=== PATIENT | male | born 1970 | race Caucasian/White ===

== ENCOUNTER 2019-04-07 15:12 | Outpatient (CLI) | payer BC, OTHER, SELFPAY ==
--- NOTE | ~2019-04-07 | XR_ITS ---
EXAMINATION: XR shoulder RT min 2V EXAM DATE: 04/07/2019 15:42 INDICATION: No known recent injury provided at this time. Pain of the right shoulder. Lump superior aspect. TECHNIQUE: The following right shoulder projections obtained: frontal projection with internal rotati on, frontal projection with external rotation, Grashey, and scapular Y view (4+ views). There is no prior study for comparison. FINDINGS: No evidence of right shoulder rotator cuff calcific tendinosis. There is moderate acromioc lavicular joint primary osteoarthritis. This does distort the skin surface superficial to this, may correlate to palpable abnormality. There are no acute fractures or dislocations identified. There is no subcutaneous gas. The soft tissue is unremarkable. There are no radiopaque foreign bodies. IMPRESSION: Moderate right acromioclavicular joint osteoarthritis. Reviewed, dictated and finalized at location B. OLL ASSISTANT
== END 2019-04-07 15:13 | disposition home or self-care (01) ==
PROVIDERS: PCP Family Medicine; Visit Provider Physician Assistant
DX: M25.511 Pain in right shoulder (principal); M19.011 Primary osteoarthritis, right shoulder
CPT/HCPCS: 73030

== ENCOUNTER 2020-03-22 14:49 | Outpatient (CLI) | payer BC, SELFPAY ==
--- NOTE | ~2020-03-22 | XR_ITS ---
EXAMINATION: XR foot RT min 3V DATE: 03/22/2020 17:51 INDICATION: Pain at the right fourth toe pad TECHNIQUE: Dorsoplantar, two oblique and lateral views of the right foot were obtained. COMPARISON: None. FINDINGS: Alignment is normal. No fracture. Minimal to mild polyarticular osteoarthritis in the mid and forefoo t. No cortical erosions or periosteal reaction. Soft tissues are unremarkable. No radiopaque foreign bodies. IMPRESSION: 1. Minimal to mild polyarticular osteoarthritis in the right mid and forefoot. No acute osseous abnor mality. Reviewed, dictated and finalized at location A. ONAL INSURANCE OFFICER IMPRESSION: 1. Minimal to mild polyarticular osteoarthritis in the right mid and forefoot. No acute osseous abnormality.
== END 2020-03-22 14:50 | disposition home or self-care (01) ==
PROVIDERS: PCP Family Medicine; Visit Provider Nurse Practitioner Family
DX: M19.071 Primary osteoarthritis, right ankle and foot (principal)
CPT/HCPCS: 73630

== ENCOUNTER 2020-06-15 05:12 | Emergency (ER) | payer BC, SELFPAY ==
[2020-06-15] VITALS (26 sets, daily range): BP systolic 108–143; BP diastolic 73–98; PULSE 72–125; RESP 10–23; TEMP 37.1; O2SAT 95–99
--- NOTE | ~2020-06-15 | XR_ITS ---
EXAMINATION: XR chest 2V DATE: 06/15/2020 06:00 INDICATION: Midsternal chest pain TECHNIQUE: PA and lateral views of the chest are obtained. COMPARISON: 12/23/2016 FINDINGS: The lungs are free of acute opacities. There is no pleural effusion or pneumothorax. The ca rdiomediastinal silhouette is normal. The visualized bones and soft tissues are unremarkable. IMPRESSION: 1. No acute cardiopulmonary abnormality. Reviewed, dictated and finalized at location A.
--- NOTE | 2020-06-15 05:27 | ECG_ITS ---
Measurements Intervals [employer] Rate: 102 P: 43 DE: 137 QRS: 18 QRSD: 68 T: 7 QT: 295 QTc: 385 Interpretive Statements SINUS TACHYCARDIA BORDERLINE T WAVE ABNORMALITY- INFERIOR LEADS BASELINE ARTIFACT- I, II, III ABNORMAL ECG Electronically Signed On 06-15-2020 13:46:50 CDT by Andreas Truong D.O.
[2020-06-15 05:41] LABS: Basophils Percent Auto 0.9 % (0.2-1.2); Eosinophils Percent Auto 1.8 % (0-4.4); Hematocrit 42.2 % (42.0-52.0); Hemoglobin 13.8 g/dL (14.0-18.0); Lymphocytes Absolute Auto 0.46 K/mm3 (0.9-3.2); Lymphocytes Percent Auto 20.4 % (18.3-44.2); Mean Corpuscular HGB Conc 32.7 g/dl (32-36); Mean Corpuscular Volume 85.6 fl (80-100); Mean Platelet Volume 9.2 fl (7.4-10.4); Monocytes Absolute Auto 0.5 K/mm3 (0.1-0.6); Monocytes Percent Auto 19.9 % (2.6-8.5); Neutrophils Absolute Auto 1.3 K/mm3 (1.3-6.7); Platelet Count Result 135 k/mm3 (150-375); Red Blood Count 4.93 M/mm3 (4.6-6.20); Red Cell Distribution Width 13.4 % (11.5-14.5); White Blood Count 2.3 K/mm3 (4.5-10.0)
[2020-06-15] MEDS: NITROGLYCERIN SL 0.4 MG TABLET SUBLINGUAL (05:41)
[2020-06-15 05:52] LABS: Prothrombin Time 13.3 Seconds (11.1-14.7)
[2020-06-15 05:53] LABS: Partial Thromboplastin Time 25.8 SECONDS (22.3-36.8)
--- NOTE | 2020-06-15 05:54 | ED.GENADULT ---
HPI - General Adult General Chief complaint: Chest Pain <Humberto Herrera MD - Last Filed: 06/15/20 06:59> Stated complaint: Chest pain <Humberto Herrera MD - Last Filed: 06/15/20 06:59> Time Seen by Provider: 06/15/20 05:33 <Humberto Herrera MD - Last Filed: 06/15/20 06:59> History of Present Illness HPI narrative: Patient is a 50-year-old gentleman who presents the emergency department with chief complaint of chest discomfort. Patient reports this evening he started having some pressure sensation in his chest patient reports he took 2 full-strength aspirin prior to arrival reports that he had no shortness of breath no diaphoresis. Patient reports that he has no prior history of cardiac disease and has had a stress test a few years ago. <Humberto Herrera MD - Last Filed: 06/15/20 06:59> Related Data Allergies/adverse reactions: Allergies Allergy/AdvReac Type Severity Reaction Status Date / Time No Known Allergies Allergy Uncoded 12/08/18 11:56 <Humberto Herrera MD - Last Filed: 06/15/20 06:59> Review of Systems Review of Systems: Narrative: A 10 system review of systems was completed on the patient and is negative except for what is stated in the HPI. Nursing and ancillary documentation was reviewed. <Humberto Herrera MD - Last Filed: 06/15/20 06:59> [facility] Past Medical History Medical History: Medical History Right anterior shoulder pain Right kidney stone Wellness examination <Humberto Herrera MD - Last Filed: 06/15/20 06:59> Family History Family History: Family History Mother Family history of diabetes mellitus in first degree relative Family history of coronary artery disease Family history of type 2 diabetes mellitus Father Patient's father is in good health <Humberto Herrera MD - Last Filed: 06/15/20 06:59> Social History Social History: Social History Smoking status: Never smoker Alcohol intake: never Gender identity (if verbalized by the patient): Male <Humberto Herrera MD - Last Filed: 06/15/20 06:59> Exam Narrative: Exam Narrative: GENERAL: Well-appearing, well-nourished, and in no acute distress. HEAD: Normocephalic, atraumatic. EYES: PERRLA and EOMI. ENT: Nares clear, no rhinorrhea or epistaxis. Mucous membranes moist. NECK: Supple. CHEST: Clear to auscultation. No respiratory distress. HEART: Regular rate and rhythm. No murmur heard. Normal peripheral pulses. ABDOMEN: Soft, nontender, nondistended, normal active bowel sounds. EXTREMITIES: Normal range of motion. No edema. SKIN: Warm, dry, no rash. NEURO: No focal deficits. Alert and oriented x3. PSYCH: Normal mood and affect. <Humberto Herrera MD - Last Filed: 06/15/20 06:59> Course Course Emergency Course: EKG showed no evidence of ST elevation or ST depression. Patient's initial troponin is negative The plan will be to perform a 3-hour troponin and if that is negative the patient will be able to follow-up as an outpatient. <Humberto Herrera MD - Last Filed: 06/15/20 06:59> 3 hour troponin negative. He still has some mild burning in his chest. I will try a GI cocktail to see if it gives him any relief. Significant improvement with GI cocktail Will plan to discharge <Maxi Lacey MD - Last Filed: 06/15/20 09:53> Vital Signs Vital signs: Vital Signs Pulse Rate 112 H 06/15/20 05:20 Respiratory Rate 17 06/15/20 05:20 Blood Pressure 142/97 H 06/15/20 05:20 Pulse Oximetry 99 06/15/20 05:20 Temperature 37.1 C 06/15/20 05:24 Pulse Rate 84 06/15/20 09:45 Respiratory Rate 14 06/15/20 09:45 Blood Pressure 118/82 06/15/20 09:01 Pulse Oximetry 98 06/15/20
[2020-06-15 05:55] LABS: Anion Gap 7 mmol/L (8-16); Blood Urea Nitrogen 15 mg/dL (9-20); Calcium 9.4 mg/dL (8.4-10.2); Carbon Dioxide 26 mmol/L (22-30); Chloride 107 mmol/L (98-107); Estimated CRCL calculation 101 ml/min; Estimated Glomerular Filt Rate > 60; Glucose 113 mg/dL (75-110); Sodium 140 mmol/L (137-145)
[2020-06-15 06:04] LABS: Troponin I < 0.012 ng/mL (0.000-0.034)
[2020-06-15 06:20] LABS: Alanine Aminotransferase 36 U/L (4-50); Albumin Level 4.3 g/dL (3.5-5.1); Alkaline Phosphatase 56 U/L (38-126); Aspartate Amino Transferase 42 U/L (17-59); Bilirubin,Total 0.2 mg/dL (0.2-1.3); Lipase 86 U/L (23-300)
[2020-06-15 09:14] LABS: Troponin I < 0.012 ng/mL (0.000-0.034)
== END 2020-06-15 09:50 | disposition home or self-care (01) ==
PROVIDERS: Emergency Medicine; Emergency Provider Emergency Medicine; PCP Family Medicine
DX: R07.89 Other chest pain (principal); Z87.442 Personal history of urinary calculi; R00.0 Tachycardia, unspecified; R94.31 Abnormal electrocardiogram [ECG] [EKG]
CPT/HCPCS: 36415; 71046; 80048; 80076; 83690; 84484; 85025; 85610; 85730; 93005; 99284; A9270

== ENCOUNTER 2023-01-26 21:21 | Emergency (ER) | payer BC, SELFPAY ==
--- NOTE | ~2023-01-26 | CT_ITS ---
Non-contrast CT scan of the Abdomen and Pelvis Clinical indication: Left flank pain Technique: 2.5 mm axial scans were obtained through the abdomen and pelvis without intravenous or or al contrast. Dose reduction technique was used on this scan by utilizing automated exposure control a nd iterative reconstruction technique. The dose-length product (DLP) was 396.36 mGy-cm. Findings: Images through the lung bases reveal 4 mm left basilar pulmonary nodule (axial image 13). There is a 4 mm proximal left ureteral stone (axial image 82), with mild left hydronephrosis. There a re additional small nonobstructing left renal calculi. No right renal or right ureteral stone. No rig ht hydronephrosis. The liver, spleen, pancreas, gallbladder, and adrenals appear normal. There is no aortic aneurysm. There is no evidence of bowel obstruction. Images through the pelvis were performed. There is no evidence of ascites or lymphadenopathy. Urinary bladder unremarkable. No pelvic mass seen. No ascites. Impression: 4 mm proximal left ureteral stone with mild hydronephrosis. Additional small nonobstructing renal calculi. 4 mm left basilar pulmonary nodule. According to Fleischner Society criteria, for a low-risk patient, no further follow-up required. For a high-risk patient, consider 12 month follow-up CT. Reviewed, dictated and finalized at location . CIATE STORE MANAGER Impression: 4 mm proximal left ureteral stone with mild hydronephrosis. Additional small nonobstructing renal calculi. 4 mm left basilar pulmonary nodule. According to Fleischner Society criteria, f or a low-risk patient, no further follow-up required. For a high-risk patient, consider 12 month follow-up CT.
[2023-01-26 21:23] VITALS: BP 139/93; PULSE 85; RESP 18; TEMP 36.8; O2SAT 100
[2023-01-26 21:38] VITALS: BP 121/83; PULSE 83; RESP 15; O2SAT 100
[2023-01-26 21:50] LABS: Basophils Percent Auto 0.5 % (0.2-1.2); Eosinophils Absolute Auto 0.1 K/mm3 (0-0.3); Eosinophils Percent Auto 1.8 % (0-4.4); Hemoglobin 14.2 g/dL (14.0-18.0); Immature Granulocyte Absolute 0.01 K/mm3 (0.00-0.031); Immature Granulocyte Percent A 0.3 % (0-0.5); Lymphocytes Percent Auto 28.7 % (18.3-44.2); Mean Corpuscular HGB Conc 32.3 g/dl (32-36); Mean Corpuscular Hemoglobin 28.5 pg (26-34); Mean Corpuscular Volume 88.4 fl (80-100); Mean Platelet Volume 9.2 fl (7.4-10.4); Monocytes Absolute Auto 0.4 K/mm3 (0.1-0.6); Monocytes Percent Auto 11.2 % (2.6-8.5); Neutrophils Absolute Auto 2.2 K/mm3 (1.3-6.7); Neutrophils Percent Auto 57.5 % (45.5-73.1); Platelet Count Result 160 k/mm3 (150-375); Red Blood Count 4.98 M/mm3 (4.6-6.20); White Blood Count 3.8 K/mm3 (4.5-10.0)
[2023-01-26 22:00] LABS: Alanine Aminotransferase 25 U/L (6-50); Albumin Level 4.6 g/dL (3.5-5.1); Alkaline Phosphatase 49 U/L (38-126); Anion Gap 13 mmol/L (8-16); Aspartate Amino Transferase 29 U/L (17-59); Bilirubin,Total 0.4 mg/dL (0.2-1.3); Blood Urea Nitrogen 14 mg/dL (9-20); Calcium 9.3 mg/dL (8.4-10.2); Carbon Dioxide 22 mmol/L (22-30); Chloride 107 mmol/L (98-107); Estimated CRCL calculation 92 ml/min; Estimated Glomerular Filt Rate > 60; Glucose 91 mg/dL (65-110); Potassium 3.6 mmol/L (3.4-5.0); Sodium 142 mmol/L (137-145)
[2023-01-26 22:08] LABS: Appearance Urine Cloudy (Clear); Bacteria Urine 1+ /hpf; Bilirubin Urine 1+ (Negative); Blood Urine 3+ (Negative); Calcium Oxalate Crystals Urine Present /hpf; Color Urine Dark Yellow (Yellow); Glucose Urine UA Negative (Negative); Ketones Urine Trace mg/dL (Negative); Leukocyte Esterase Ur Trace LEU/UL (Negative); Mucus Urine Present /lpf; Nitrate Urine Negative (Negative); Protein Urine 2+ mg/dL (Negative); RBC Urine >100 /hpf (0-2); Specific Grav Ur 1.028 (1.001-1.035); Squamous Epithelial Cell Urine None seen /hpf (Few); WBC Urine 0-5 /hpf; pH Urine 5.5 (5.0-9.0)
[2023-01-26 22:10] LABS: Add Urine Microscopic? YES
--- NOTE | 2023-01-26 22:22 | ED.MALEGU ---
HPI - Male Genitourinary General Chief complaint: Urogenital-Male Stated complaint: Kidney pain Time Seen by Provider: 01/26/23 21:31 History of Present Illness HPI Narrative: 52-year-old male with a history of kidney stones reports for evaluation for left-sided flank pain x1 hour. Patient states the pain radiates into his left abdomen and feels like his prior kidney stones. He denies dysuria, hematuria, urinary frequency or urgency. He does state that his urine looked darker today. Denies nausea or vomiting, fever. He does endorse some diarrhea. Related Data Allergies Allergy/AdvReac Type Severity Reaction Status Date / Time No Known Allergies Allergy Unknown Uncoded 01/26/23 21:22 Review of Systems Review of Systems: CONSTITUTIONAL: Denies fever, chills, or sweats. EYES: Denies visual changes, redness, or discharge. ENT: Denies rhinorrhea, congestion, sore throat, or otalgia. CARDIOVASCULAR: Denies chest pain, palpitations, or edema. RESPIRATORY: Denies cough or dyspnea. GASTROINTESTINAL: See HPI GENITOURINARY: see HPI SKIN: Denies rash or itching. MUSCULOSKELETAL: Denies back pain, joint pain, or myalgia. NEUROLOGIC: Denies headache, numbness, or weakness. PSYCHIATRIC: Denies anxiety or depression. [facility] Past Medical History Medical History IFG (impaired fasting glucose) Right anterior shoulder pain Right kidney stone Wellness examination Family History Family History Mother Family history of diabetes mellitus in first degree relative Family history of coronary artery disease Family history of type 2 diabetes mellitus Father Patient's father is in good health Social History Social History Smoking status: Never smoker Alcohol intake: never Substance use: never Living arrangements: with family Occupation/Education: occupation Gender identity (if verbalized by the patient): Male Sexual Orientation (if Verbalized by the Patient): Straight or Heterosexual Spiritual care concerns: No Exam Narrative: GENERAL: Well-appearing, well-nourished, and in no acute distress. patient resting comfortably in exam bed. He is pleasant and conversational. HEAD: Normocephalic, atraumatic. EYES: PERRLA and EOMI. ENT: Nares clear, no rhinorrhea or epistaxis. Mucous membranes moist. NECK: Supple. CHEST: Clear to auscultation. No respiratory distress. HEART: Regular rate and rhythm. No murmur heard. Normal peripheral pulses. ABDOMEN: Normoactive bowel sounds. Abdomen soft and nontender. Nondistended. Left CVA tenderness. No rebound, guarding or rigidity. EXTREMITIES: Normal range of motion. No edema. SKIN: Warm, dry, no rash. NEURO: No focal deficits. Alert and oriented x3 Course Vital Signs Vital signs: Vital Signs Temperature 98.3 F 01/26/23 21:23 Pulse Rate 85 01/26/23 21:23 Respiratory Rate 18 01/26/23 21:23 Blood Pressure 139/93 H 01/26/23 21:23 Pulse Oximetry 100 01/26/23 21:23 Oxygen Delivery Room Air 01/26/23 21:23 Temperature 98.3 F 01/26/23 21:23 Pulse Rate 83 01/26/23 21:38 Respiratory Rate 15 01/26/23 21:38 Blood Pressure 121/83 01/26/23 21:38 Pulse Oximetry 100 01/26/23 21:38 Oxygen Delivery Room Air 01/26/23 21:23 MDM - Male Genitourinary MDM Narrative Medical decision making narrative: 52-year-old male with history of kidney stones reports for evaluation for left-sided flank pain x1 hour. See HPI for further history. Vitals are stable and he is afebrile. He is well appearing on exam. Exam significant for left CVA tenderness. Lab significant for leukocytosis of 3.8 which is increased from his prior. chemistries are unremarkable. creatinine normal at 0.8. Urinalysis significant for hematuria, trace leuk esterase and 1+ bacteria. No wbc's.
[2023-01-26] MEDS: MORPHINE SULFATE (*CRX) 4 MG/ML INJ IV PUSH (22:36)
[2023-01-26] MEDS: SODIUM CHLORIDE 0.9% IV 1,000 ML 999 ML IV CONT (22:39)
[2023-01-26 22:43] LABS: Lipase 163 U/L (23-300)
[2023-01-26] MEDS: HYDROmorphone HCL INJ (*CRX) 1 MG/ML SYR 0.5 MG IV PUSH (23:33)
[2023-01-27] MEDS: HYDROmorphone HCL INJ (*CRX) 1 MG/ML SYR 0.5 MG IV PUSH (01:28)
[2023-01-27 01:30] VITALS: BP 120/82; PULSE 90; RESP 15; O2SAT 99
== END 2023-01-27 01:35 | disposition home or self-care (01) ==
PROVIDERS: Emergency Medicine; Emergency Provider Physician Assistant; PCP Family Medicine
DX: K52.9 Noninfective gastroenteritis and colitis, unspecified (principal); N13.2 Hydronephrosis with renal and ureteral calculous obstruction; Z87.442 Personal history of urinary calculi; R91.1 Solitary pulmonary nodule
CPT/HCPCS: 36415; 74176; 80053; 81001; 83690; 85025; 96361; 96374; 96375; 96376; 99284; J1170; J2270; J7030

== ENCOUNTER 2023-01-30 01:00 | Day surgery (SDC) | payer BC, SELFPAY ==
[2023-01-29 08:34] VITALS: BMI 21.6
--- NOTE | 2023-01-29 08:38 | PC.NURSE ---
Report to the Outpatient Waiting Room, entrance under the green pavilion located off [facility], at time 1230 on date 01/30/23. Planned Procedure Time: 1430. Time changes happen often and if your time is changed the preop area will call you the afternoon before. - You and your visitor will be asked to self-screen and do not enter if you have any COVID symptoms. - A mask is optional within the hospital at this time. Patients may have clear liquids (water, carbonated beverages, clear teas, apple juice) until 3 hours prior to surgery with a maximum of 20 ounces. - No food from midnight until time of surgery Take the following medications with a SIP of water the morning of surgery: PAIN PILL IF NEEDED DO NOT STOP ANY OF YOUR OTHER PRESCRIPTION MEDICATIONS PRIOR TO SURGERY ?EXCEPT THE FOLLOWING Medications to discontinue per physician: N/A Date to take last dose: N/A Please no make-up, nail turkish, hairspray, perfume, deodorant, or body powder the day of surgery. No jewelry (including any body piercings) or valuables the day of surgery, leave them at home. Please take a shower or bath the night before, or the morning of, surgery with an antibacterial soap. Wear comfortable, loose fitting clothing. - Jewelry must be removed prior to entering the operating room. Rings and piercings that are not removed may be cut off. - The hospital will not accept responsibility for valuables. - Please leave all valuables, including medications, at home the day of surgery. If you are going home after surgery, a licensed [facility] driver must drive you home. - NO public transportation without another adult if you receive anesthesia. - We recommend that an adult stay with you for 24 hours following discharge. - We also recommend that you do not drive, make important decision, drink alcoholic beverages, or take any drugs that were not prescribed by your health care provider for at least 24 hours after your discharge time. Follow any additional instructions given to you from your surgeon. If you or anyone in your household have experienced Covid symptoms in the past week, please notify your surgeon or the nurse liaison at the phone number below for possible testing. Telephone instructions given to PT - DEMETRIS WHEELER and asked if any additional questions and then verbalized understanding. Patient advised to call surgeon office or pre surgery nurse liaison [phone] if any additional questions.
--- NOTE | 2023-01-29 14:45 | P.PNAN_ITS ---
Anes - Initial Pre Proc Eval Procedure: Operation Date: 01/30/23 14:30 Proposed Procedures p Cystoscopy, Left Ureteroscopy with Stone Extraction, Possible Holmium Laser, Possible Left Stent Placement - Matty Christine MD Date/Time: 01/29/23 14:45 Surgeon: Matty Christine MD Pre Op Diagnosis: left ureteral stone Patient Data Age: 52 Gender: M Height: 1.8 m Weight: 70.3 kg Allergies Allergy/AdvReac Type Severity Reaction Status Date / Time No Known Allergies Allergy Unknown Uncoded 01/29/23 08:34 Home Medications Medication Instructions Recorded Confirmed Type hydrocodone 5 mg-acetaminophen 325 1 tablet PO Q8H PRN pain #10 tabs 01/27/23 01/29/23 Rx mg tablet ondansetron 4 mg disintegrating 4 mg PO Q8H #20 tabs 01/27/23 01/29/23 Rx tablet tamsulosin 0.4 mg capsule (Flomax) 0.4 mg PO HS #14 caps 01/27/23 01/29/23 Rx Patient hx anesthesia problems: none Family hx anesthesia problems: none Results Review: All pre-operative results and documents have been reviewed as part of the pre- operative evaluation. [facility] Past Medical History Medical History IFG (impaired fasting glucose) Right anterior shoulder pain Right kidney stone Wellness examination Family History Family History Mother Family history of diabetes mellitus in first degree relative Family history of coronary artery disease Family history of type 2 diabetes mellitus Father Patient's father is in good health Social History Social History Smoking status: Never smoker Alcohol intake: never Substance use: never Substance use type: does not use Living arrangements: with family Occupation/Education: occupation Gender identity (if verbalized by the patient): Male Sexual Orientation (if Verbalized by the Patient): Straight or Heterosexual Spiritual care concerns: No Anes - Eval Final PreProcedure Day of Procedure 01/29/23 14:45 Patient weight: normal Heart: regular rate and rhythm Lungs: clear to auscultation and normal air movement Airway: Mallampati scale class II Neurological: alert and oriented Last oral intake: >/= 8 hours ASA classification: II Emergent: no Anesthetic plan: proceed Anesthesia type and monitoring: general LMA and standard monitoring Results Review: All pre-operative results and documents have been reviewed as part of the pre-operative evaluation. Informed Consent: The patient's anesthetic plan and its attendant risks and benefits were discussed with the patient/family/POA. Questions were solicited and answers provided to the satisfaction of the patient/family/POA.
[2023-01-30] VITALS (13 sets, daily range): BP systolic 108–135; BP diastolic 70–86; PULSE 56–113; RESP 12–16; TEMP 35.6–36.9; O2SAT 99–100; BMI 23.7
--- NOTE | ~2023-01-30 | XR_ITS ---
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 TECHNIQUE: 3 fluoroscopic images of the abdomen were obtained during left lithotripsy with stone jackie ros performed by the surgeon. I was not present in the operating room. Fluoroscopy exposure time was 40.6 seconds. Air Kerma 9.48 mGy. DAP [id number] mGym2. COMPARISON: CT abdomen pelvis 01/26/2023 FINDINGS: Fluoroscopic images demonstrate wire access to the left collecting system followed by catheter placem ent. IMPRESSION: Fluoroscopic documentation of left lithotripsy with stone removal. Please refer to the operative note for complete procedural details . Reviewed, dictated and finalized at location K. ESS AND BAG INSPECTOR
--- NOTE | 2023-01-30 06:33 | WPDHPUPDATE1 ---
History and Physical Update Update Date/Time: 01/30/23 06:33 History and Physical has been reviewed, including an updated exam of the patient. There are NO changes in the patient's condition. Risks, benefits, and alternatives have been discussed and questions answered. Patient agrees to proceed with procedure.
[2023-01-30] MEDS: LACTATED RINGERS 1,000 ML 30 ML IV CONT ×3 (13:32→17:30)
[2023-01-30] MEDS: ceFAZolin 2 GM/D5W 50 ML 2 GM/50 ML BAG IVPB (14:12)
[2023-01-30] MEDS: LIDOCAINE HCL 2% GEL UROJET 10 ML PKG MUCOUS MEM (14:22)
[2023-01-30] MEDS: KETOROLAC 15 MG/ML VIAL (*BKC) IV PUSH ×2 (14:38→23:50)
--- NOTE | 2023-01-30 14:48 | W.PM.PROC2 ---
Procedure Note - Detailed Date of Procedure 01/30/23 Pre-op Diagnosis Left ureteral stone Post-op Diagnosis Same Procedure Performed Cystoscopy, left ureteroscopy with laser lithotripsy and left ureteral stone extraction Surgeon Matty Christine MD Anesthesia General Description of Procedure patient is brought to the operative suite where he has prepped draped in routine sterile fashion while in dorsal lithotomy position after the uneventful induction general LMA anesthetic. Cystoscopy was undertaken with a 21 F rigid cystoscope. He has no urethral stricture and minimal prostatic hyperplasia. The bladder was normal without intravesical foreign body or neoplasm. He has bilateral Hutch diverticula with, otherwise, normal orthotopic ureteral orifices. 0.035 in glidewire was advanced in the left renal pelvis. Left distal ureter was dilated with an 8 F 10 F dilator. Left ureteroscopy was 1st undertaken with a semi-rigid ureteral scope. I do not see any stone in the distal ureter. A 7.5 F flexible ureteral scope was then placed. He has a single 5 mm stone with a couple peripheral fragments in the proximal ureter. Using a 200 micron holmium laser I fractured the stone into the of couple really small pieces and irrigated out spontaneously. I was not able to remove the bulk of the stone, otherwise intact, with a 1.9 F disposable stone basket. I repeated ureteroscopy, including inspection of all calices and saw no fragments over 1-2 mm. Because of the ease of this manipulation I opted not to place a ureteral stent. Scope was removed and he was taken recovery room good condition Drains No Packing No Pathology None sent
[2023-01-30] MEDS: oxyCODONE HCL (*CRX) 5 MG TAB IR PO (15:49)
[2023-01-30] MEDS: fentaNYL CITRATE INJ (*CRX) 100 MCG/2 ML VIAL 25 MCG IV PUSH ×8 (15:49→18:00)
[2023-01-30] MEDS: KETOROLAC 30 MG/ML VIAL (*BKC) IV PUSH (16:25)
--- NOTE | 2023-01-30 17:00 | SUR.PHASEII ---
Addendum entered by Amna Navarro RN 01/30/23 17:06: DR. MORENO CALLED AT 1615. Original Note: DR. MORENO NOTIFIED RE: PATIENT HAVING SEVERE LEFT FLANK PAIN 10/10, WRITHING, VERY PALE. DR. MORENO INSTRUCTED TO GIVE 30 MG TORADOL AND CONTINUE GIVING FENTANYL. PATIENT WAS ABLE TO URINATE 150 ML RED URINE. NO CLOTS NOTED. DR. MORENO STATED PATIENT MAY BE ADMITTED FOR PAIN CONTROL IF HE DOESN'T IMPROVE.
--- NOTE | 2023-01-30 17:37 | SUR.PHASEII ---
DR. MORENO CALLED RE: PATIENT STILL HAVING INTERMITTENT SEVERE PAIN 8-11/19. PATIENT EXPRESSES ANXIETY ABOUT GOING HOME WITH THIS LEVEL OF PAIN. DR. MORENO INSTRUCTED TO ADMIT PATIENT TO FLOOR.
--- NOTE | 2023-01-30 18:02 | SUR.PHASEII ---
1433 MANAGER [employer]ET[employer]S CALLED TO REQUEST ADMISSION. PATIENT ORDERED DINNER.
[2023-01-30] MEDS: HYDROmorphone HCL INJ (*CRX) 1 MG/ML SYR 0.5 MG IV PUSH ×2 (20:05→22:52)
[2023-01-30] MEDS: LACTATED RINGERS 1,000 ML 125 ML IV CONT (20:13)
[2023-01-30] MEDS: ONDANSETRON INJ 4 MG/2 ML VIAL IV PUSH (21:52)
--- NOTE | 2023-01-30 22:28 | ADMGEN ---
This patient, Abdi Martinez, was admitted to [facility] Surg Room 330-01. Patient/family oriented to hospital policies and general routines including ID bracelet, bed and alarms, visiting hours, pain management, procedures, bathroom and other care routines, personal items, smoking policy, room service/diet, and visiting hours. Information on how to activate the Rapid Response Team has been discussed. Patient/Family are encouraged to report perceived risks to care and to ask questions if they do not understand what they are told or what they should do.
[2023-01-31 05:26] VITALS: BP 115/79; PULSE 74; RESP 18; TEMP 36.3; O2SAT 100
[2023-01-31] MEDS: HYDROcodone/acetaminophen (*CRX) 7.5-325 MG TABLET 1 TAB PO (05:48)
--- NOTE | 2023-01-31 07:22 | PM.IMHP ---
H&P: HPI History of Present Illness Date/Time: 01/31/23 07:22 Chief Complaint: Left flank pain Narrative: Patient with an obstructing 5 mm left mid ureteral calculus who underwent ureteroscopy with extraction yesterday. He opted not to place a stent postoperatively. Unfortunately, he had significant left flank pain prompting admission overnight. Very early this morning he passed a clot likely came from his left ureter and he has now felt quite well without pain. Review of Systems Cardiovascular: Cardiovascular: Denies chest pain, Denies lightheadedness, Denies palpitations and Denies dyspnea Respiratory: Respiratory: Denies dyspnea Gastrointestinal: Gastrointestinal: Denies diarrhea, Denies nausea and Denies vomiting Genitourinary: Genitourinary: Denies hematuria and Denies dysuria Endocrine: Endocrine: Denies palpitations [facility] Past Medical History Medical History IFG (impaired fasting glucose) Right anterior shoulder pain Right kidney stone Wellness examination Family History Family History Mother Family history of diabetes mellitus in first degree relative Family history of coronary artery disease Family history of type 2 diabetes mellitus Father Patient's father is in good health Social History Social History Smoking status: Never smoker Alcohol intake: never Substance use: never Substance use type: does not use Do You Feel Safe in your Home?: Yes Lack of Transportation: No Lack of Food: Never True Current Housing: I Have Housing Concerned About Future Housing: No Difficulty Paying Gas/Electric Bills: No Difficulty Paying for Meds: No Currently Unemployed: No Education: Associate Degree Difficulty w/ Childcare or Family Care: No Living arrangements: with family Occupation/Education: occupation Gender identity (if verbalized by the patient): Male Sexual Orientation (if Verbalized by the Patient): Straight or Heterosexual Spiritual care concerns: No Meds Home Medications and Allergies Home Medications Medication Instructions Recorded Confirmed Type hydrocodone 5 mg-acetaminophen 325 1 tablet PO Q8H PRN pain #10 tabs 01/27/23 01/29/23 Rx mg tablet ondansetron 4 mg disintegrating 4 mg PO Q8H #20 tabs 01/27/23 01/29/23 Rx tablet tamsulosin 0.4 mg capsule (Flomax) 0.4 mg PO HS #14 caps 01/27/23 01/29/23 Rx hydrocodone 5 mg-acetaminophen 325 1 - 2 tablet PO Q6H PRN pain #20 01/30/23 Rx mg tablet tabs ketorolac 10 mg tablet 10 mg PO Q6H 5 days #20 tabs 01/30/23 Rx sulfamethoxazole 800 1 tablet PO Q12H #6 tabs 01/30/23 Rx mg-trimethoprim 160 mg tablet Allergies Allergy/AdvReac Type Severity Reaction Status Date / Time No Known Allergies Allergy Unknown Uncoded 01/30/23 13:33 Vital Signs Vital Signs - 24 hr 01/30/23 13:30 01/30/23 14:47 01/30/23 15:00 Temperature 98.4 F 97.5 F L Pulse Rate 93 56 L 61 Respiratory Rate 14 12 16 Blood Pressure 118/81 108/73 114/80 Pulse Oximetry 100 100 100 Oxygen Delivery Room Air Simple Face Mask Simple Face Mask Oxygen Flow Rate 6 6 01/30/23 15:15 01/30/23 15:22 01/30/23 15:50 Temperature Pulse Rate 65 71 84 Respiratory Rate 13 13 13 Blood Pressure 120/85 121/74 128/77 Pulse Oximetry 100 Oxygen Delivery Room Air Oxygen Flow Rate 01/30/23 16:20 01/30/23 16:50 01/30/23 17:20 Temperature Pulse Rate 89 95 95 Respiratory Rate 13 13 13 Blood Pressure 135/86 130/77 119/70 Pulse Oximetry Oxygen Delivery Oxygen Flow Rate 01/30/23 17:50 01/30/23 18:20 01/30/23 18:50 Temperature 97.1 F L Pulse Rate 102 H 113 H 95 Respiratory Rate 13 13 12 Blood Pressure 124/75 109/84 126/82 Pulse Oximetry 99 Oxygen Delivery Oxygen Flow Rate 01/30/23 20:44 01/31/23 05:26 Temperatur
[2023-01-31 08:00] VITALS: PULSE 74; RESP 18; O2SAT 100
--- NOTE | 2023-01-31 10:31 | WPDANESPN ---
Anes - Prog Note Post-Op Date/Time: 01/31/23 10:31 Cardiovascular status: normal Respiratory status: normal Airway patency: baseline Mental status: baseline Post-Op hydration status: normal Vital Signs: Last Vital Signs Temp 97.4 F L 01/31/23 05:26 Pulse 74 01/31/23 05:26 Resp 18 01/31/23 05:26 BP 115/79 01/31/23 05:26 Pulse Ox 100 01/31/23 05:26 O2 Del Method Room Air 01/30/23 15:15 O2 Flow Rate 6 01/30/23 15:00 Pain Score (VAS): 0/10 I/O: Intake & Output 01/30/23 01/31/23 01/31/23 23:59 07:59 15:59 Intake Total 2050 2950 Output Total 200 1950 Balance 1850 1000 Post-procedural complaints: none Patient Feedback: Patient satisfied with anesthetic care.
--- NOTE | 2023-01-31 12:19 | PM.DS ---
DS: Admitting Diagnosis Discharge Date 01/31/2023 Admitting Diagnosis Left ureteral stone DS: Discharge Diagnosis Discharge Diagnosis (1) Left ureteral stone: Code(s): N20.1 - Calculus of ureter Status: Acute DS: Summary Hospital Course Hospital Course: Admitted following left ureteroscopy with stone extraction for pain management. Night of procedure he passsed a small clot (probably from the left ureter). Thereafter he was comfortable. Time Spent with Patient Time attestation: Total time spent providing and/or coordinating discharge services: DS: Data Data Completed and Pending Pending studies at discharge: Pending at discharge 01/30/23 14:40 Surgical [PTH] Routine Discharge Plan Discharge Patient Disposition: Home, Self-Care Discharge Instructions: 1) Activity: no driving or important decisions x24 hours. 2) Diet: resume your normal, pre-admission diet. 3) Follow-up: 1-2 weeks / call for appointment ([phone]). YOU MAY TAKE HYDROCODONE WITH TYLENOL AFTER 10 PM NEEDED FOR PAIN. Stand Alone Forms: General Discharge Instructions, Work/School Release IP Discharge Orders: Discharge Order (Routine); Ordered 01/31/23 Ordered By: Matty Christine Discharge Medications: New hydrocodone-acetaminophen 5-325 mg tablet 1 - 2 tablet PO Q6H PRN (Reason: pain) Qty: 20 0RF sulfamethoxazole-trimethoprim 800-160 mg tablet 1 tablet PO Q12H Qty: 6 0RF ketorolac 10 mg tablet 10 mg PO Q6H 5 Days Qty: 20 0RF Continued hydrocodone-acetaminophen 5-325 mg tablet 1 tablet PO Q8H PRN (Reason: pain) Qty: 10 0RF tamsulosin [Flomax] 0.4 mg capsule 0.4 mg PO HS Qty: 14 0RF ondansetron 4 mg tablet,disintegrating 4 mg PO Q8H Qty: 20 0RF
== END 2023-01-31 13:32 | disposition home or self-care (01) ==
LOC: ANHSURGERY 18:32 → ANH3MEDSUR 18:40
PROVIDERS: PCP Family Medicine; Visit Provider Urology
PROC: (CPT 52352; principal; 2023-01-30 14:30)
DX: N20.1 Calculus of ureter (principal); G89.18 Other acute postprocedural pain
CPT/HCPCS: 52353; 82365; 88300; 99199; A9270; C1769; J0690; J1100; J1170; J1885; J2405; J2704; J3010; J7120

== ENCOUNTER 2023-04-14 08:14 | Outpatient (CLI) | payer BC, SELFPAY ==
--- NOTE | ~2023-04-14 | XR_ITS ---
EXAMINATION: XR abdomen/kub 1V INDICATION: Left ureteral stone TECHNIQUE: Supine views of the abdomen were obtained on 2 radiographs. COMPARISON: CT, 01/26/2023 FINDINGS: The previously described left proximal ureteral stone is no longer identified. There are sm all stones of the left kidney. No stones are identified along the expected location of the ureters or in the urinary bladder. The bowel gas pattern is normal. IMPRESSION: 1. Left nephrolithiasis. Reviewed, dictated and finalized at location B. [employer] IMPRESSION: 1. Left nephrolithiasis.
== END 2023-04-14 08:15 | disposition home or self-care (01) ==
PROVIDERS: PCP Family Medicine; Visit Provider Urology
DX: N20.1 Calculus of ureter (principal)
CPT/HCPCS: 74018

== ENCOUNTER 2023-12-01 08:18 | Outpatient (CLI) | payer BC, SELFPAY ==
--- NOTE | ~2023-12-01 | XR_ITS ---
XR abdomen/kub 1V Ordering provider: Matty Christine MD History: . LEFT URETERAL STONE . Comparison: April 14, 2023 FINDINGS: BOWEL: Nonobstructive bowel gas pattern. ORGANOMEGALY: None. SIGNIFICANT PATHOLOGIC CALCIFICATIONS: Tiny calcifications seen in the left renal area. Follow-up adv ised. OTHER: No free air is seen under the diaphragm. IMPRESSION: NO ACUTE ABDOMINAL FINDINGS. Left kidney stones. Reviewed, dictated and finalized at location A.
== END 2023-12-01 08:19 | disposition home or self-care (01) ==
LOC: ANHIMG 08:21
PROVIDERS: PCP Family Medicine; Visit Provider Urology
DX: N20.0 Calculus of kidney (principal)
CPT/HCPCS: 74018